=== PATIENT | female | born 1945 ===

== ENCOUNTER → 2022-11-23 | Day surgery (SDC) | payer OTHER ==
[~2022-11-23] VITALS: Ht 1615 cm; Wt 57.6 kg
[~2022-11-23] MED LIST: 'XANAX0.5 MG PO; AMBIEN5 MG PO; CARAFATE1 G1 PO; PREVACID30 M2 PO; ZANAFLEX4 M2 PO
[2022-11-23 11:04] VITALS: BP 151/61
[2022-11-23 11:56] VITALS: BP 114/71
[2022-11-23 12:11] VITALS: BP 123/63
[2022-11-23 12:26] VITALS: BP 109/70
== END ==
LOC: SDC 11-20 11:45
PROVIDERS: ATTEND Surgery
DX: R10.9 Unspecified abdominal pain (principal); K29.80 Duodenitis without bleeding; K29.50 Unspecified chronic gastritis without bleeding; E78.00 Pure hypercholesterolemia, unspecified; F41.9 Anxiety disorder, unspecified; K21.9 Gastro-esophageal reflux disease without esophagitis; I48.91 Unspecified atrial fibrillation; Z90.710 Acquired absence of both cervix and uterus; Z98.890 Other specified postprocedural states